=== PATIENT | female | born 1960 | race Caucasian/White ===

== ENCOUNTER 2016-11-04 09:28 | Day surgery (SDC) | payer BC ==
--- NOTE | 2016-11-04 07:11 | History and Physical Report ---
DATE: 11/04/2016. CHIEF COMPLAINT: This patient presents with a history of intractable chronic low back and leg pain. HISTORY OF PRESENT ILLNESS: On October 12, 2016, a spinal cord stimulator trial was conducted with up to 75 to 90 percent pain control. Due to the failure of all therapies and the success of the stimulator trial, the patient presents today for implantation of a permanent system. PAST MEDICAL HISTORY: Hypertension, chronic head and neck pain, bladder dysfunction, diverticular disease. PAST SURGICAL HISTORY: Lumbar spinal surgery. EMPLOYMENT STATUS: Works without restrictions. MEDICATIONS ON ADMISSION: To be provided. ALLERGIES: List provided; does include multiple antibiotics. SOCIAL HISTORY: Noncontributory. FAMILY HISTORY: Hypertension. REVIEW OF SYSTEMS: To be provided. PHYSICAL EXAMINATION: General: Height is 5 feet, 3 inches. Weight is 200 pounds. Vital Signs: Not available. HEENT: Within normal limits. Lungs: Clear. Heart: Regular rate and rhythm. Abdomen: Nontender. Musculoskeletal: Examination of the musculoskeletal system shows diffuse tenderness throughout the low back. Range of motion produces pain into both lower extremities. Ambulation: No assistive device utilized. Neurologic: Cranial nerves are intact. IMPRESSION: 1. POSTLUMBAR LAMINECTOMY SYNDROME, ICD-10 CODE 96.1. 2. LUMBAR RADICULITIS, ICD-10 CODE M54.16 AND M54.17. PLAN: The patient is here for implantation of a permanent spinal cord stimulator due to a successful trial. The potential risks, side effects, and complications have all been carefully reviewed and discussed including nerve root injury, spinal cord injury, dural puncture, and headache. We will consider the procedure outpatient, although an overnight stay will be evaluated. ANGIE DOE D.O. Date & Time JOB NUMBER: [id number] cc: Fercho Sánchez M.D. MTDD
[~2016-11-04 09:28] MED LIST: ACETAMINOPHEN 1,000 MG/100 ML BTL IV ONE; CEFAZOLIN 2 Gram 2 GM/50 ML BAG IVPB ONE; FAMOTIDINE 20MG TABLET PO ONE; MECLIZINE 25 MG TABLET PO ONE; METOCLOPRAMIDE 10 MG TABLET PO ONE
[2016-11-04] MEDS ORDERED: TEMAZEPAM 15 MG CAPSULE PO PRN ×2 (13:45)
[2016-11-04] MEDS ORDERED: AL HYDROX/MAG HYDROX 30ML UD PO PRN (13:45)
[2016-11-04] MEDS ORDERED: SENNOSIDES/DOCUSATE SODIUM UD CAPSULE PO PRN ×2 (13:45)
[2016-11-04] MEDS ORDERED: HYDROMORPHONE HCL 2 MG/ML VIAL IM PRN (13:45)
[2016-11-04] MEDS ORDERED: METOCLOPRAMIDE HCL 10 MG/2 ML VIAL IVP PRN (13:45)
[2016-11-04] MEDS ORDERED: METOCLOPRAMIDE 10 MG TABLET PO PRN (13:45)
[2016-11-04] MEDS ORDERED: ACETAMINOPHEN 325 MG TAB PO PRN ×2 (13:45)
[2016-11-04] MEDS ORDERED: HYDROMORPHONE HCL 1 MG/ML CPJ IM PRN (13:45)
[2016-11-04] MEDS ORDERED: DIPHENHYDRAMINE HCL 25 MG CAPSULE PO PRN ×2 (13:45)
[2016-11-04] MEDS ORDERED: DIPHENHYDRAMINE HCL IV 50 MG/ML VIAL IVP PRN ×2 (13:45)
[2016-11-04] MEDS ORDERED: OXYCODONE/APAP 10MG-325MG TABLET PO PRN ×2 (13:45)
[2016-11-04] MEDS ORDERED: HYDROCODONE/APAP 7.5/325MG TABLET PO PRN ×2 (13:45)
[2016-11-04] MEDS ORDERED: PROPOFOL 10 MG/ML VIAL IV ONE (14:00)
[2016-11-04] MEDS ORDERED: LIDOCAINE 2% MDV (20MG/ML) 20ML VIAL IV ONE (14:00)
[2016-11-04] MEDS ORDERED: FLUMAZENIL 1MG/10ML VIAL IV ONE (14:00)
[2016-11-04] MEDS ORDERED: MIDAZOLAM HCL 2MG/2ML VIAL IV ONE (14:00)
[2016-11-04] MEDS ORDERED: FENTANYL PF 100MCG/2ML VIAL IV ONE (14:00)
[2016-11-04] MEDS ORDERED: BUPIVACAINE 0.5% W/EPI MPF 30 ML VIAL IVP ONE (16:35)
[2016-11-04] MEDS ORDERED: LIDOCAINE 1% W/EPI 1:200,000 MPF 30ML SQ ONE (16:35)
[2016-11-04] MEDS ORDERED: CEFAZOLIN 1G VIAL IM ONE (16:35)
[2016-11-04] MEDS ORDERED: CEFAZOLIN 2 Gram 2 GM/50 ML BAG IVPB SCH (19:15)
[2016-11-04] MEDS ORDERED: 0.9 % SODIUM CHLORIDE 10ML SYR IVP SCH (22:00)
--- NOTE | 2016-11-04 23:26 | Operative Note - [place] ---
DATE OF SURGERY: 11/04/16 PREOPERATIVE DIAGNOSES: INTRACTABLE LUMBAR RADICULITIS ICD-10 CODE = M54.16 AND M54.17. OPERATION: 1. FLUOROSCOPIC-GUIDED RIGHT EPIDURAL ACCESS [id number], PLACEMENT OF SPINAL CORD STIMULATOR LEAD 1, A [employer] INFINION 16 WITH 6 ELECTRODES POSITIONED LEFT T5-6. 2. FLUOROSCOPIC-GUIDED EPIDURAL ACCESS RIGHT T10-11, PLACEMENT OF SPINAL CORD STIMULATOR LEAD 2, A [employer] INFINION 16 WITH 6 ELECTRODES POSITIONED RIGHT T5-6. 3. COMPLEX PROGRAMMING LEAD 1, 20 MINUTES FOLLOWED BY COMPLEX PROGRAMMING LEAD 2 , 20 MINUTES. 4. INCISION, SUBCUTANEOUS DISSECTION AND ANCHORING LEADS 1 AND 2 TO SUPRASPINOUS FASCIA USING A [employer] LOCKING ANCHOR. 5. INCISION, SUBCUTANEOUS DISSECTION AND CREATION OF SUBCUTANEOUS POUCH AT RIGHT POSTERIOR GLUTEAL MARGIN FOR PLACEMENT OF GENERATOR IDENTIFIED A [employer], PROGRAMMABLE AND RECHARGEABLE. 6. TUNNELING BETWEEN POUCHES, PLACEMENT OF EXTERNAL PORTION OF LEAD 1 AND LEAD 2 INTO GENERATOR POUCH, EACH LEAD INTERFACED WITH BIFURCATING EXTENSION, EACH BIFURCATING EXTENSION INTO GENERATOR. 7. PLACEMENT OF LEADS INTO POUCH, PLACEMENT OF GENERATOR POUCH, CLOSURE OF INCISIONS WITH VICRYL FOR FASCIA AND RUNNING SUBCUTICULAR VICRYL FOR SKIN. DERMABOND CLOSURE. 8. COMPLEX RECOVERY ROOM PROGRAMMING OF INTERNAL GENERATOR, HOME USE, TWO STIMULATORS, 20 MINUTES. SURGEON: ANGIE DOE D.O. ANESTHESIA: LOCAL SEDATION. ANESTHESIA PROVIDER: RICARDO ARGUETA CRNA INDICATIONS: This patient presents with a history of intractable lumbar radiculitis. Due to failure of all therapies, a spinal cord stimulator trial was conducted office-based with 75-90% pain control. Due to the failure of all therapies and the success of the stimulator trial, the patient presents today for implantation of a permanent system. PROCEDURE: Intravenous line, vital sign monitoring, IV sedation, prepped and draped with sterile technique. Under imaging, the epidural interspace from the right at T11-12 and 10-11 were consistent with the trial were marked, infiltrated, and two separate curved access Epimed needles with loss-of- resistance into this space. At T11-12, spinal cord stimulator lead 1, a [employer] Infinion 16 with 6 electrodes was positioned left at T5-6. Epidural access right of the midline at 10-11, same technique. Spinal cord stimulator lead 2, [employer] Infinion 16 with 6 electrodes was positioned right at T5-6. Complex programming of lead 1, over 20 minutes followed complex programming of lead 2, over 20 minutes, ultimately resulting in patterns of stimulation across the back and into the legs. Patient indicating we were in all the areas of the pain. She was given the option to implant the system and continue to program or remove the system and she opted the implant. Questions were repeated with the same response. She was then re-sedated by Anesthesia. The skin above and below the needle was infiltrated and an incision made and subcutaneous dissection was conducted to the supraspinous fascia. Each lead was anchored to the supraspinous fascia with a [employer] Locking [place], secured to the deep fascia with nonabsorbable suture. At the right posterior gluteal margin, a site picked by the patient for the generator identified as a [employer], programmable and rechargeable. Skin infiltrated and an incision made and subcutaneous dissection was conducted to form a pouch of suitable size and depth for the generator. A tunneling tool was then used to carry the leads into the generator pouch and then each lead was interfaced with bifurcating extension and each bifurcating extension interfaced with the generator. Antibiotic irrigation. Bovie for hemostasis. The generator was then placed into the pouch and secured to the fascia with nonabsorbable suture. The leads were placed into their pouch and then both incisions were closed Vicryl for fascia, running subcuticular Vicryl for skin. A Dermabond closure was used. She was transported to the Recovery Room stable showing no side-effects from the procedure or the sedation. When fully awake and alert in the Recovery Room, complex programming of the internal generator of 20 minutes performed reestablishing stimulation of pain control to all the appropriate areas. The patient is requesting to be discharged. DISCHARGE INSTRUCTIONS: 1. THE SITES ARE TO REMAIN CLEAN AND DRY. THE DERMABOND WILL ALLOW SHOWERING IN 24 HOURS. 2. STANDARD MEDICATIONS RESUMED INCLUDING LEVAQUIN, THE ANTIBIOTIC, 500 MG ONCE A DAY FOR 14 DAYS. 3. ACTIVITY LEVELS WILL REMAIN LOW FOR THE NEXT FOUR WEEKS. THE PATIENT WILL BE CONTACTED AT HOME TO SET UP AN EVALUATION IN THE NEXT 5 TO 7 DAYS, AT WHICH POINT WE WILL LOOK AT THE INCISIONAL SITES. UNTIL THEN, LIMIT BEND, LIFT, PUSH, PULL AND AT THE TIME OF THE EVALUATION WE WILL DISCUSS OTHER OPTIONS WITH RESPECT TO ACTIVITIES. ALL OTHER INSTRUCTIONS PROVIDED, NUMBERS TO CONTACT IF PROBLEMS GIVEN. AT THAT POINT, SHE WAS DISCHARGED. cc: Dr. lEi Pierce JOB NUMBER: [id number] MTDD
[2016-11-05] MEDS ORDERED: PANTOPRAZOLE SODIUM 40 MG TABLET PO SCH (07:00)
[2016-11-05] MEDS ORDERED: LEVOTHYROXINE SODIUM 50 MCG TABLET PO SCH (07:00)
[2016-11-05] MEDS ORDERED: DULOXETINE HCL 30 MG CAPSULE.DR PO SCH (10:00)
[2016-11-05] MEDS ORDERED: DIPHENOXYLATE HCL/ATROP 2.5/0.025MG TABLET PO SCH (10:00)
[2016-11-05] MEDS ORDERED: LISINOPRIL 20 MG TABLET PO SCH (10:00)
[2016-11-05] MEDS ORDERED: HYDROCHLOROTHIAZIDE 12.5 MG CAPSULE PO SCH (10:00)
--- NOTE | 2016-11-05 12:23 | RADIOLOGY REPORT ---
EXAM: AP THORACIC SPINE HISTORY: POST PAIN STIMULATOR IMPLANT. TECHNIQUE: A single AP view of the thoracic spine was obtained. Comparison: AP thoracic spine 09/09/11. FINDINGS: On the current exam there are two wires extending up the spine to the approximate level of the T5 vertebral body. On the prior exam there were also two wires probably two different wires than that seen currently, which previously extended up to the T7 level. IMPRESSION: APPARENT SPINAL STIMULATION WIRES EXTENDING UP TO THE LEVEL OF THE T5 VERTEBRA. JOB NUMBER: [id number] MTDD
== END 2016-11-04 16:08 | disposition home or self-care (01) ==
LOC: SUR 09:28 → MEDSURG 13:48 → SUR 16:08
PROVIDERS: ATTEND Pain Medicine Interventional Pain Medicine
DX: M54.16 Radiculopathy, lumbar region (principal); M54.17 Radiculopathy, lumbosacral region; I10 Essential (primary) hypertension; M10.9 Gout, unspecified; F32.9 Major depressive disorder, single episode, unspecified; E03.9 Hypothyroidism, unspecified; E78.00 Pure hypercholesterolemia, unspecified
CPT/HCPCS: 95972; 72020; 63685; 63650 ×2; 00300; J3010; J0690